=== PATIENT | male | born 1950 | race Caucasian/White ===

== ENCOUNTER 2016-06-16 07:15 | Emergency (ER) | payer OTHER ==
[2016-06-16 07:27] VITALS: BP 124/77
--- NOTE | 2016-06-16 08:12 | ED Physician Documentation ---
PD HPI MALE - Stated complaint Stated Complaint: RX CONCERN - Chief complaint Chief Complaint: General - History obtained from History obtained from: Patient - History of Present Illness Timing - onset: How many days ago (he has been on Cipro for few days by Urologist, who had anticipated interaction with the patient's Coumadin and had told patient to cut his coumadin dose in half while on the antibiotic. The patient is concerned about it being in target range, and was to have his INR checked in few days after starting the Cipro, but it is weekend and can't get to his PMD for extra order for test. Here for INR check. Patient normally takes 3 mg daily Coumadin and had decreased dose to 2 mg daily the past 4 days.) Associated symptoms: Dysuria Recently seen: Clinic (seen by Urologist for dysuria recently and Dx with prostatitis with Rx for Cipro for 2 weeks.) Review of Systems Constitutional: denies: Fever Nose: denies: Epistaxis GI: denies: Nausea, Vomiting, Diarrhea, Bloody / black stool PD PAST MEDICAL HISTORY - Past Medical History Past Medical History: Yes Cardiovascular: Hypertension Neuro: TIA - Past Surgical History Past Surgical History: Yes Cardiovascular: Other (mechanical heart valve surgery) Derm: Skin cancer surgery - Present Medications Home Medications: Ambulatory Orders Medication Instructions Recorded Confirmed Aspirin [Children's Aspirin] 81 mg PO DAILY 01/28/13 06/16/16 Atenolol [Tenormin] 25 mg PO DAILY 01/28/13 06/16/16 Epinephrine [Epipen] 0.3 mg IM ONCE PRN #1 syr 01/28/13 06/16/16 Losartan Potassium [Cozaar] 50 mg PO DAILY 01/28/13 06/16/16 Tamsulosin [Flomax] 0.4 mg PO DAILY 01/28/13 06/16/16 Warfarin Sodium [Coumadin] 3 mg PO DAILY 01/28/13 06/16/16 Latanoprost 0.005% Ophth Drops 1 drops OPTH QPM 03/23/15 06/16/16 [Xalatan Ophth Drops] amLODIPine [Norvasc] 5 mg PO DAILY 06/16/16 06/16/16 - Allergies Allergies/Adverse Reactions: Allergies Allergy/AdvReac Type Severity Reaction Status Date / Time shellfish derived Allergy Anaphylaxis Verified 03/23/15 20:05 - Social History Does the pt smoke?: No Smoking Status: Never smoker Does the pt drink ETOH?: Yes Does the pt have substance abuse?: No - Immunizations Immunizations are current?: Yes - POLST Patient has POLST: No POLST Status: Full Code PD ED PE NORMAL - Vitals Vital signs reviewed: Yes - General General: Alert and oriented X 3, No acute distress, Well developed/nourished - Cardiac Cardiac: RRR, No murmur, Other (mechanical valve click) - Respiratory Respiratory: Clear bilaterally - Derm Derm: Normal color, Warm and dry - Neuro Neuro: Alert and oriented X 3, Normal speech Results - Vitals Vitals: Oxygen O2 Source Room air - Labs Labs: Laboratory Tests 06/16/16 08:23 Whole Blood INR 2.0 H PD MEDICAL DECISION MAKING - ED course Complexity details: reviewed results (INR was 2.0, with last one 2.2 2 days ago and was 2.4 last week (typical pretty steady at 2.4/2.5).), considered differential (the cipro not affecting his coumadin as much as Ortho had anticipated, so will have him go back up closer to usual dose of Coumadin. ), d/ w patient Departure - Departure Disposition: 01 Home, Self Care Clinical Impression: Anticoagulant long-term use Condition: Stable Record reviewed to determine appropriate education?: Yes Follow-Up: Nabil Cesar MD [Primary Care Provider] - Comments: Take 1 mg Coumadin this morning, then resume your usual 3 mg tonight and tomorrow, then likely 2 mg on Friday. I would suggest a 3 day pattern of 3 mg/ 3 mg/ 2mg... until finished your antibiotics. Have your INR checked on Friday and again on Friday to see how it is trending. Discharge Date/Time: 06/16/16 08:52
== END 2016-06-16 08:52 | disposition home or self-care (01) ==
LOC: ED 07:15
DX: D68.9 Coagulation defect, unspecified (principal); I10 Essential (primary) hypertension; Z86.73 Personal history of transient ischemic attack (TIA), and cerebral infarction without residual deficits; Z79.01 Long term (current) use of anticoagulants; Z85.828 Personal history of other malignant neoplasm of skin; Z79.82 Long term (current) use of aspirin
CPT/HCPCS: 85610; 99283

== ENCOUNTER 2016-07-18 09:47 | Outpatient (CLI) | payer OTHER | END 2016-07-18 09:48 | disposition home or self-care (01) | LOC: SC 09:47 | PROVIDERS: ATTEND Nurse Practitioner Family | DX: G47.33 Obstructive sleep apnea (adult) (pediatric) (principal) | CPT/HCPCS: 99212; 99214 ==

== ENCOUNTER 2016-08-08 16:07 | Emergency (ER) | payer OTHER ==
[2016-08-08] MEDS ORDERED: LIDOCAINE 1% 2 ML VIAL ONE (16:31)
--- NOTE | 2016-08-08 16:56 | ED Physician Documentation ---
PD HPI UPPER EXT INJURY - Stated complaint Stated Complaint: LACERATION R THUMB - Chief complaint Chief Complaint: Laceration - History obtained from History obtained from: Patient, Family - History of Present Illness Location: Right, Hand (thumb) Type of injury: Laceration Where injury occurred: Home Timing - onset: Today Timing - duration: Hours Timing - details: Abrupt onset, Still present Improved by: Rest, Immobilization Worsened by: Moving, Palpating Associated symptoms: No: Weakness, Numbness, Tingling, Swelling, Discolored Contributing factors: Anticoagulated Similar symptoms before: Diagnosis (laceration) Recently seen: Not recently seen - Additonal information Additional information: 66 y/o male was using his lathe at home when he got his thumb in the way of the spinning almaz and this tore a flap over the dorsum of the thumb. He has no functional deficit but has a large deep flap laceration . Review of Systems Constitutional: denies: Fever GI: denies: Vomiting Skin: reports: Laceration (s). denies: Rash Musculoskeletal: denies: Neck pain, Back pain, Extremity pain Neurologic: denies: Generalized weakness, Focal weakness, Numbness PD PAST MEDICAL HISTORY - Past Medical History Cardiovascular: Hypertension Neuro: TIA - Past Surgical History Past Surgical History: Yes Cardiovascular: Other Derm: Skin cancer surgery - Present Medications Home Medications: Ambulatory Orders Medication Instructions Recorded Confirmed Aspirin [Children's Aspirin] 81 mg PO DAILY 01/28/13 08/08/16 Atenolol [Tenormin] 50 mg PO DAILY 01/28/13 08/08/16 Epinephrine [Epipen] 0.3 mg IM ONCE PRN #1 syr 01/28/13 08/08/16 Losartan Potassium [Cozaar] 100 mg PO DAILY 01/28/13 08/08/16 Tamsulosin [Flomax] 0.4 mg PO DAILY 01/28/13 08/08/16 Warfarin Sodium [Coumadin] 3 mg PO DAILY 01/28/13 08/08/16 Latanoprost 0.005% Ophth Drops 1 drops OPTH QPM 03/23/15 08/08/16 [Xalatan Ophth Drops] - Allergies Allergies/Adverse Reactions: Allergies Allergy/AdvReac Type Severity Reaction Status Date / Time shellfish derived Allergy Anaphylaxis Verified 08/08/16 16:16 - Social History Does the pt smoke?: No Smoking Status: Never smoker Does the pt drink ETOH?: Yes Does the pt have substance abuse?: No - Immunizations Immunizations are current?: Yes - POLST Patient has POLST: No POLST Status: Full Code PD ED PE NORMAL - Vitals Vital signs reviewed: Yes (hypertensive ) - General General: No acute distress, Well developed/nourished - HEENT HEENT: Atraumatic, PERRL, EOMI - Respiratory Respiratory: No respiratory distress - Derm Derm: Normal color, Warm and dry, No rash - Extremities Extremities: Other (There is a 3cm flap laceration to the dorsum of the right thumb over the DIP. There is a partial laceration of the extensor tendon of the DIP and the function appears entirely preserved. ) - Neuro Neuro: No motor deficit, No sensory deficit, Normal speech - Psych Psych: Normal mood, Normal affect Results - Vitals Vitals: Vital Signs - 24 hr 08/08/16 16:12 Temperature 36.4 C L Heart Rate 60 Respiratory 14 Rate Blood Pressure 147/88 H O2 Saturation 100 Oxygen O2 Source Room air Procedures - Laceration (location) right thumb Length in cm: 3 Wound type: Flap, Clean Neurovascular status: Sensory intact, Motor intact, Vascular intact Tendon involvement: Tendon Injury Anesthesia: Lidocaine 1% Wound Preparation: Hibiclens, Irrigated copiously NS, Wound explored, To the base Skin layer closure: Nylon, Interrupted, Size #-0 - enter number (4-0), Sutures - enter # (8) Other: Patient tolerated well, No complications, Neurovascular intact, Dressing applied, Tetanus UTD Complexity: Simple PD MEDICAL DECISION MAKING - ED course Complexity details: reviewed old records, considered differential, d/w patient, d/w family ED course: 66 y/o male with a deep flap laceration to the dorsal right thumb has a partial tendon laceration with preserved function. He is sutured and placed into a splint in extension and we will have him follow up with ortho. Departure - Departure Disposition: 01 Home, Self Care Clinical Impression: Laceration of thumb with tendon involvement Qualifiers: Encounter type: initial encounter Laterality: right Qualified Code(s): S61.011A - Laceration without foreign body of right thumb without damage to nail , initial encounter Condition: Stable Instructions: ED Laceration Hand, ED Laceration Tendon Follow-Up: Nabil Cesar MD [Primary Care Provider] - [facility] [Provider Group] Comments: wear the splint until your follow up with the orthopedis.
[2016-08-08 18:03] VITALS: BP 136/74
== END 2016-08-08 17:44 | disposition home or self-care (01) ==
LOC: ED 16:07
DX: S61.011A Laceration without foreign body of right thumb without damage to nail, initial encounter (principal); W31.89XA Contact with other specified machinery, initial encounter; Y92.019 Unspecified place in single-family (private) house as the place of occurrence of the external cause; I10 Essential (primary) hypertension; Z86.73 Personal history of transient ischemic attack (TIA), and cerebral infarction without residual deficits; Z79.01 Long term (current) use of anticoagulants; Z79.82 Long term (current) use of aspirin; Z85.828 Personal history of other malignant neoplasm of skin
CPT/HCPCS: 12002; 99283

== ENCOUNTER 2016-08-16 21:19 | Outpatient (CLI) | payer OTHER | END 2016-08-16 21:20 | disposition home or self-care (01) | LOC: SC 21:19 | PROVIDERS: ATTEND Internal Medicine Pulmonary Disease | DX: G47.33 Obstructive sleep apnea (adult) (pediatric) (principal); G47.61 Periodic limb movement disorder; Z68.33 Body mass index [BMI] 33.0-33.9, adult | CPT/HCPCS: 95810 ==

== ENCOUNTER 2016-09-16 09:28 | Outpatient (CLI) | payer OTHER | END 2016-09-16 09:29 | disposition home or self-care (01) | LOC: SC 09:28 | PROVIDERS: ATTEND Nurse Practitioner Family | DX: G47.33 Obstructive sleep apnea (adult) (pediatric) (principal); G47.61 Periodic limb movement disorder | CPT/HCPCS: 99212; 99214 ==

== ENCOUNTER 2016-11-21 08:36 | Outpatient (CLI) | payer OTHER | END 2016-11-21 08:37 | disposition home or self-care (01) | LOC: SC 08:36 | PROVIDERS: ATTEND Nurse Practitioner Family | DX: G47.33 Obstructive sleep apnea (adult) (pediatric) (principal) | CPT/HCPCS: 99212; 99214 ==

== ENCOUNTER 2017-01-02 08:35 | Outpatient (CLI) | payer OTHER | END 2017-01-02 08:36 | disposition home or self-care (01) | LOC: SC 08:35 | PROVIDERS: ATTEND Nurse Practitioner Family | DX: G47.33 Obstructive sleep apnea (adult) (pediatric) (principal) | CPT/HCPCS: 99212; 99214 ==

== ENCOUNTER 2019-09-17 12:33 | Outpatient (CLI) | payer MEDICARE, OTHER | END 2019-09-17 12:34 | disposition home or self-care (01) | LOC: COV 12:33 | PROVIDERS: ATTEND Family Medicine | DX: R05 Cough (principal); R09.81 Nasal congestion; Z20.828 Contact with and (suspected) exposure to other viral communicable diseases ==

== ENCOUNTER 2021-03-30 07:04 | Outpatient (CLI) | payer MEDICARE, OTHER ==
--- NOTE | 2021-03-30 08:35 | Ultrasound Report ---
PROCEDURE: Aorta Screening INDICATIONS: SCREENING FOR CARDIOVASCULAR DISORDERS TECHNIQUE: Real time scanning was performed of the aorta and iliac arteries, with image documentatio n. COMPARISON: June 17, 2014 FINDINGS: Aorta: Proximal aortic diameter measures 2.8 cm. Mid-aorta measures 2.0 x 2.0 cm. Distal aortic di ameter is 2.0 x 2.0 cm. Iliac arteries: Right common iliac artery measures 1.4 x 1.3 cm. Left common iliac artery measures 1.2 x 1.6 cm. IMPRESSION: 1. No aneurysmal dilatation of the abdominal aorta. Consider 5 year follow-up as clinically warranted . Reviewed by: Joe Burkett MD on 03/30/2021 8:34 AM PST Approved by: Joe Burkett MD on 03/30/2021 8:34 AM PST Station ID: [id number]
== END 2021-03-30 07:05 | disposition home or self-care (01) ==
LOC: DI 07:04
PROVIDERS: ATTEND Internal Medicine
DX: Z13.6 Encounter for screening for cardiovascular disorders (principal)